=== PATIENT | female | born 1995 ===

== ENCOUNTER 2017-10-08 09:22 | Emergency (ER) | payer BC ==
--- NOTE | 2017-10-08 09:35 | ER Report ---
History and Physical Time Seen By MD: 09:35 Hx. of Stated Complaint: Vomitting for 2 days. HPI/ROS CHIEF COMPLAINT: vomiting, abdominal pain HISTORY OF PRESENT ILLNESS: This is a 22 year old female. She has been vomiting for 2 days. Was able to keep a little food and liquid down yesterday, seems a little worse today. Has some pain in the middle of her stomach that usually is only there when she needs to vomiting. Has no fevers, but has felt chilled. A little pain with urination. No diarrhea. No chest pain or shortness of breath. No sick contacts. No travel. No bad food or water exposure. No rashes. No musculoskeletal pain. Mild headache. Allergies: Coded Allergies: No Known Drug Allergies (Unverified , 10/08/17) Home Meds Active Scripts Ondansetron (ZOFRAN ODT) 4 Mg Tab.rapdis, 4 MG PO Q6H PRN for NAUSEA/VOMITING, #20 TAB.DEEPA 0 Refills Prov:FÉLIX LASSITER MD 10/08/17 Reviewed Nurses Notes: Yes Hx Alcohol Use: Yes (occ) Constitutional Vital Sign - Last 24 Hours 10/08/17 09:27 Temp 97.8 Pulse 64 Resp 18 B/P (MAP) 139/85 Pulse Ox 97 O2 Delivery Room Air Physical Exam General Appearance: The patient is alert. No acute distress, but is ill appearing. Eyes: Pupils are equal, round. No pallor, injection or icterus. ENT: Mucous membranes are a little dry. Normal oral mucosa. Posterior oropharynx is normal. Neck: Supple and non tender. Respiratory: Lungs are clear to auscultation. Cardiovascular: Regular rate and rhythm. No murmurs, gallops or rubs. Normal capillary refill. Gastrointestinal: Abdomen is soft, but discomfort in epigastric and thony- umbilical area. Nondistended. No rebound or guarding. Hyperactive bowel sounds. No costovertebral angle tenderness with percussion. Neurological: Alert and oriented x3. Skin: Warm and dry. Musculoskeletal: No tenderness in palpation of the cervical, thoracic and lumbar spine. DIFFERENTIAL DIAGNOSIS: After history and physical exam, differential diagnosis was considered for abdominal pain including but not limited to gastroenteritis, gastritis and urinary tract infection. Medical Decision Making Data Points Result Diagram: 10/08/17 0936 10/08/17 0936 Laboratory Hematology Test 10/08/17 09:36 10/08/17 10:51 Red Blood Count 5.50 M/uL (4.17-5.56) Mean Corpuscular Volume 91.5 fL (80.0-96.0) Mean Corpuscular Hemoglobin 31.3 pg (26.0-33.0) Mean Corpuscular Hemoglobin Concent 34.2 g/dL (32.0-36.0) Red Cell Distribution Width 12.4 % (11.5-14.5) Mean Platelet Volume 8.0 fL (7.2-11.1) Neutrophils (%) (Auto) 57.7 % (39.4-72.5) Lymphocytes (%) (Auto) 34.1 % (17.6-49.6) Monocytes (%) (Auto) 7.2 % (4.1-12.4) Eosinophils (%) (Auto) 0.2 % (0.4-6.7) Basophils (%) (Auto) 0.8 % (0.3-1.4) Nucleated RBC Relative Count (auto) 0.1 /100WBC Neutrophils # (Auto) 3.6 K/uL (2.0-7.4) Lymphocytes # (Auto) 2.1 K/uL (1.3-3.6) Monocytes # (Auto) 0.5 K/uL (0.3-1.0) Eosinophils # (Auto) 0.0 K/uL (0.0-0.5) Basophils # (Auto) 0.1 K/uL (0.0-0.1) Nucleated RBC Absolute Count (auto) 0.00 K/uL Sodium Level 141 mmol/L (137-145) Potassium Level 3.3 mmol/L (3.5-5.0) Chloride Level 104 mmol/L (98-107) Carbon Dioxide Level 20 mmol/L (22-31) Blood Urea Nitrogen 17 mg/dl (7-18) Creatinine 0.90 mg/dl (0.52-1.04) Glomerular Filtration Rate Calc > 60.0 Random Glucose 115 mg/dl (75-110) Calcium Level 9.9 mg/dl (8.4-10.2) Total Bilirubin 1.2 mg/dl (0.2-1.3) Aspartate Amino Transf (AST/SGOT) 23 U/L (0-35) Alanine Aminotransferase (ALT/SGPT) 19 U/L (0-56) Alkaline Phosphatase 77 U/L (0-126) C-Reactive Protein < 0.5 mg/dl (<1.0) Total Protein 8.4 g/dl (6.3-8.2) Albumin 5.1 g/dl (3.5-5.0) Amylase Level 80 U/L (0-110) Lipase 100 U/L (23-300) Human Chorionic Gonadotropin, Qual Negative (NEGATIVE) Urine Color Yellow Urine Clarity Slightly-cloudy Urine pH 6.0 pH (4.8-9.5) Urine Specific Ruffin 1.019 Urine Protein Negative mg/dL (NEGATIVE) Urine Glucose (UA) Negative mg/dL (NEGATIVE) Urine Ketones 20 mg/dL (NEGATIVE) Urine Blood Negative (NEGATIVE) Urine Nitrite Negative (NEGATIVE) Urine Bilirubin Negative (NEGATIVE) Urine Urobilinogen 2.0 mg/dL (0.2-1.9) Urine Leukocyte Esterase Negative (NEGATIVE) Urine RBC 2 /HPF (0-2/HPF) Urine WBC 4 /HPF (0-5/HPF) Urine Squamous Epithelial Cells Many /LPF (</=FEW) Urine Bacteria Negative /HPF (NONE-FEW) Urine Hyaline Casts Few /LPF (NONE-FEW) Urine Mucus Few /HPF (NONE-FEW) Chemistry Test 10/08/17 09:36 10/08/17 10:51 White Blood Count 6.3 k/uL (4.5-11.0) Red Blood Count 5.50 M/uL (4.17-5.56) Hemoglobin 17.2 g/dL (12.0-16.0) Hematocrit 50.3 % (34.0-47.0) Mean Corpuscular Volume 91.5 fL (80.0-96.0) Mean Corpuscular Hemoglobin 31.3 pg (26.0-33.0) Mean Corpuscular Hemoglobin Concent 34.2 g/dL (32.0-36.0) Red Cell Distribution Width 12.4 % (11.5-14.5) Platelet Count 262 K/uL (150-450) Mean Platelet Volume 8.0 fL (7.2-11.1) Neutrophils (%) (Auto) 57.7 % (39.4-72.5) Lymphocytes (%) (Auto) 34.1 % (17.6-49.6) Monocytes (%) (Auto) 7.2 % (4.1-12.4) Eosinophils (%) (Auto) 0.2 % (0.4-6.7) Basophils (%) (Auto) 0.8 % (0.3-1.4) Nucleated RBC Relative Count (auto) 0.1 /100WBC Neutrophils # (Auto) 3.6 K/uL (2.0-7.4) Lymphocytes # (Auto) 2.1 K/uL (1.3-3.6) Monocytes # (Auto) 0.5 K/uL (0.3-1.0) Eosinophils # (Auto) 0.0 K/uL (0.0-0.5) Basophils # (Auto) 0.1 K/uL (0.0-0.1) Nucleated RBC Absolute Count (auto) 0.00 K/uL Glomerular Filtration Rate Calc > 60.0 Calcium Level 9.9 mg/dl (8.4-10.2) Total Bilirubin 1.2 mg/dl (0.2-1.3) Aspartate Amino Transf (AST/SGOT) 23 U/L (0-35) Alanine Aminotransferase (ALT/SGPT) 19 U/L (0-56) Alkaline Phosphatase 77 U/L (0-126) C-Reactive Protein < 0.5 mg/dl (<1.0) Total Protein 8.4 g/dl (6.3-8.2) Albumin 5.1 g/dl (3.5-5.0) Amylase Level 80 U/L (0-110) Lipase 100 U/L (23-300) Human Chorionic Gonadotropin, Qual Negative (NEGATIVE) Urine Color Yellow Urine Clarity Slightly-cloudy Urine pH 6.0 pH (4.8-9.5) Urine Specific Ruffin 1.019 Urine Protein Negative mg/dL (NEGATIVE) Urine Glucose (UA) Negative mg/dL (NEGATIVE) Urine Ketones 20 mg/dL (NEGATIVE) Urine Blood Negative (NEGATIVE) Urine Nitrite Negative (NEGATIVE) Urine Bilirubin Negative (NEGATIVE) Urine Urobilinogen 2.0 mg/dL (0.2-1.9) Urine Leukocyte Esterase Negative (NEGATIVE) Urine RBC 2 /HPF (0-2/HPF) Urine WBC 4 /HPF (0-5/HPF) Urine Squamous Epithelial Cells Many /LPF (</=FEW) Urine Bacteria Negative /HPF (NONE-FEW) Urine Hyaline Casts Few /LPF (NONE-FEW) Urine Mucus Few /HPF (NONE-FEW) Urinalysis Test 10/08/17 10:51 Urine Color Yellow Urine Clarity Slightly-cloudy Urine pH 6.0 pH (4.8-9.5) Urine Specific Ruffin 1.019 Urine Protein Negative mg/dL (NEGATIVE) Urine Glucose (UA) Negative mg/dL (NEGATIVE) Urine Ketones 20 mg/dL (NEGATIVE) Urine Blood Negative (NEGATIVE) Urine Nitrite Negative (NEGATIVE) Urine Bilirubin Negative (NEGATIVE) Urine Urobilinogen 2.0 mg/dL (0.2-1.9) Urine Leukocyte Esterase Negative (NEGATIVE) Urine RBC 2 /HPF (0-2/HPF) Urine WBC 4 /HPF (0-5/HPF) Urine Squamous Epithelial Cells Many /LPF (</=FEW) Urine Bacteria Negative /HPF (NONE-FEW) Urine Hyaline Casts Few /LPF (NONE-FEW) Urine Mucus Few /HPF (NONE-FEW) EKG/Imaging Imaging Exam: ACUTE ABDOMEN SERIES 3 VIEW Indication: ABD PAIN, RAD Comparison: None available Findings: Single view the chest shows normal cardiomediastinal contours. The lungs are clear. There is no evidence of pneumoperitoneum. There is a nonspecific bowel gas pattern. Relative paucity of bowel gas limits evaluation, however, no secondary signs of obstruction are identified. No abnormal masses or calcifications are seen. IMPRESSION: 1. Nonspecific bowel gas pattern but no evidence of obstruction. 2. Negative chest Report Dictated By: Pardeep Pickard at 10/08/2017 10:45 AM ED Course/Re-evaluation Clinical Indication for ER IV: Hydration, IV Access ED Course Labs unremarkable other than signs of dehydration. Urinalysis with changes that look more like contamination, urine culture has been ordered. Patient received a liter of normal saline and some Zofran and Toradol. Mild improvement. Another liter of normal saline and more Zofran was given. Discussed with the patient that symptoms and results point toward a viral gastroenteritis, conservative management discussed. See instructions below. Decision to Disposition Date: Oct 08, 2017 Decision to Disposition Time: 11:16 Depart Departure Latest Vital Signs Vital Signs Date Time Temp Pulse Resp B/P (MAP) Pulse Ox O2 Delivery O2 Flow Rate FiO2 10/08/17 09:27 97.8 64 18 139/85 97 Room Air Impression: Primary Impression: Viral gastroenteritis Condition: Improved Disposition: HOME OR SELF-CARE New Scripts Ondansetron (ZOFRAN ODT) 4 Mg Tab.rapdis 4 MG PO Q6H PRN for NAUSEA/VOMITING, #20 TAB.DEEPA 0 Refills Prov: FÉLIX LASSITER MD 10/08/17 Patient Instructions: Gastroenteritis (ED) Additional Instructions: Rest and increase fluid intake over the next few days. Stick with clear liquids initially and take small but frequent sips. Use Zofran 4mg, one every 6 hours as needed for nausea or vomiting. Once feeling better, you can start eating a bland diet. FÉLIX LASSITER MD Oct 08, 2017 09:35
[2017-10-08] MEDS ORDERED: NS(*) 0.9% 1000 ML BAG 1,000 ML IV ONE ×2 (09:38→11:05)
[2017-10-08] MEDS ORDERED: ONDANSETRON 4 MG/2 ML VIAL IVP ONE ×2 (09:40→11:05)
[2017-10-08] MEDS ORDERED: KETOROLAC 30 MG/ML VIAL IVP ONE (09:40)
[2017-10-08 09:46] LABS: PLATELET COUNT, AUTOMATED 262 K/uL (150-450)
--- NOTE | 2017-10-08 10:50 | RADIOLOGY IMAGING REPORT ---
FACILITY: [facility] - [place] PATIENT NAME: Leelee Valladares : 1995 MR: [id number] V: [id number] EXAM DATE: ORDERING PHYSICIAN: FÉLIX LASSITER TECHNOLOGIST: Location: [facility] - [place] Patient: Leelee Valladares : 1995 Visit/Account:[id number] Date of Sevice: 10/08/2017 Exam: ACUTE ABDOMEN SERIES 3 VIEW Indication: ABD PAIN, RAD Comparison: None available Findings: Single view the chest shows normal cardiomediastinal contours. The lungs are clear. There is no evidence of pneumoperitoneum. There is a nonspecific bowel gas pattern. Relative paucity of bowel gas limits evaluation, however, no secondary signs of obstruction are identified. No abnormal masses or calcifications are seen. IMPRESSION: 1. Nonspecific bowel gas pattern but no evidence of obstruction. 2. Negative chest Report Dictated By: Pardeep Pickard at 10/08/2017 10:45 AM Report E-Signed By: Pardeep Pickard at 10/08/2017 10:47 AM WSN:[id number]
[2017-10-08] MEDS ORDERED: ONDA4TAB PO (11:17)
[2017-10-08 11:30] VITALS: BP 115/80
== END 2017-10-08 11:50 | disposition home or self-care (01) ==
LOC: ER 09:42
DX: A08.4 Viral intestinal infection, unspecified (principal)
CPT/HCPCS: 74022; 81001; 82150; 83690; 84703; 85025; 86140; 87088; 96361; 96374; 96375; 96376; 99284; J1885; J2405; J7030; 82040; 82247; 82310; 82374; 82435; 82565; 82947; 84075; 84132; 84155; 84295; 84450; 84460; 84520